=== PATIENT | female | born 1945 | race Caucasian/White ===

== ENCOUNTER 2016-11-01 21:44 | Observation (INO) | payer OTHER ==
[~2016-11-01] VITALS: Ht 165.1 cm; Wt 67.3 kg
[~2016-11-01 21:44] MED LIST: ADVIL,NUPRIN,M200 MG PO; ASPIR-LOW81 MG PO; ASPIR-TRIN325 M1 PO; ATIVAN0.5 MG PO; Advil,Nuprin,Motrin PO; Ativan PO; CALCIUM 500 +1 EACH PO; CARDIZEM CD,CA180 MG PO; CLARITIN-D 21 TABLET PO; ERYTHROMYC1 APPLICAT BOTH EYES; HYDROCHLOROTHIA25 MG PO; Hydrodiuril,Oretic,E PO; LUCENTIS0.5 MG/0.0 IO; Levothroid,Synthroid PO; NICOTINE PATCH1 EAC2 TD; PSEUDOEPHEDRINE30 MG PO; ST. JOSEPH ASPI81 MG PO; SYNTHROID100 MCG PO; Sudafed PO; TUMS500 MG PO; Tums,OsCal PO; Vicodin
[2016-11-01 22:20] LABS: HEMATOCRIT 36.2 % (36.0-46.0); MCV 88.3 FL (83-99); MEAN PLAT.VOLUME 9.4 uM^3 (9.5-12.4); PLATELET COUNT 464 K/uL (156-360); RBC DIS.WIDTH-CV 13.5 % (11.8-14.6); RBC DIS.WIDTH-SD 42.1 % (39-53); WHITE BLOOD COUNT 11.3 K/uL (4.1-10.2)
[2016-11-01 22:35] LABS: CHLORIDE 100 mEq/L (99-109); POTASSIUM 2.8 mEq/L (3.7-5.4); SODIUM 139 mEq/L (136-147)
[2016-11-01 22:36] LABS: GLUCOSE 89 mg/dL (70-99)
[2016-11-01 22:38] LABS: ANION GAP 12 MEQ/L (2-14)
[2016-11-01 22:40] LABS: GFR ESTIMATE (CALCULATED) > 59 mL/min/
[2016-11-01 22:41] LABS: UREA NITROGEN (BUN) 19 mg/dL (9-23)
[2016-11-01 22:44] LABS: TROP-I INTERPRETATION NEGATIVE; TROPONIN-I 0.04 ng/mL (0.0-0.30)
[2016-11-01 23:34] LABS: MAGNESIUM 2.1 mg/dL (1.3-2.7)
[2016-11-02] MEDS ORDERED: CARDIZEM CD,CA180 MG PO (00:06)
[2016-11-02] MEDS ORDERED: LORAZEPAM0.5 MG PO (00:07)
[2016-11-02] MEDS ORDERED: TIZANIDINE HCL4 MG PO (00:08)
[2016-11-02] MEDS ORDERED: PREDNISONE50 MG PO (00:08)
[2016-11-02] MEDS ORDERED: KLOR-CON M2020 MEQ PO (00:08)
[2016-11-02] MEDS ORDERED: ELIQUIS5 MG PO (00:08)
[2016-11-02] MEDS ORDERED: PRAVASTATIN SOD40 MG PO (00:09)
[2016-11-02 00:43] LABS: SERUM ETHYL ALCOHOL < 10 mg/dL
[2016-11-02 03:23] VITALS: BP 162/74
[2016-11-02 03:52] LABS: ADD MIUA? YES; BILIRUBIN NEGATIVE; BLOOD TRACE; COLOR YELLOW ((YELLOW)); GLUCOSE (STRIP) NEGATIVE; KETONES NEGATIVE; LEUKOCYTES SMALL; NITRITE NEGATIVE; PROTEIN (STRIP) NEGATIVE; UROBILINOGEN 0.2 MG/DL (0.2-1.0)
[2016-11-02 04:19] LABS: AMPHETAMINES QUANT VALUE 0 NG/ML; BARBITUATES QUANT VALUE 0 NG/ML; BENZODIAZEPINES QUANT VALUE 0 NG/ML; BENZODIAZEPINES, URINE SCREEN Negative (200 ng/mL); MARIJUANA QUANT VALUE 0 NG/ML; OPIATES QUANTITATIVE VALUE 0 NG/ML; PHENCYCLIDINE QUANT VALUE 0 NG/ML
[2016-11-02 04:43] VITALS: BP 140/80
[2016-11-02 04:51] LABS: BACTERIA RARE /HPF; CASTS NONE SEEN /LPF; CRYSTALS NONE SEEN; EPITHELIAL CELLS RARE /HPF; MUCUS NONE SEEN /LPF; RED BLOOD CELLS RARE /HPF (0-5); UCUL ADDED? NO; WHITE BLOOD CELLS 0-5 /HPF (0-5)
[2016-11-02 05:19] LABS: EOSINOPHIL (%) 0.6 % (0-5); EOSINOPHIL COUNT 0.1 K/uL (0-0.3); HEMATOCRIT 32.9 % (36.0-46.0); IMMATURE GRANULOCYTE (%) 0.6 % (0.0-0.7); IMMATURE GRANULOCYTE COUNT 0.1 K/uL; LYMPHOCYTE COUNT 3.1 K/uL (1.0-2.8); MCHC 33.7 G/DL (30.0-36.0); MCV 88.9 FL (83-99); MEAN PLAT.VOLUME 10.3 uM^3 (9.5-12.4); MONOCYTE (%) 9.9 % (3-12); MONOCYTE COUNT 0.8 K/uL (0-0.8); NEUTROPHIL (%) 50.8 % (45-76); NEUTROPHIL COUNT 4.1 K/uL (1.8-6.4); PLATELET COUNT 386 K/uL (156-360); RBC DIS.WIDTH-CV 13.8 % (11.8-14.6); RBC DIS.WIDTH-SD 45.4 % (39-53); WHITE BLOOD COUNT 8.1 K/uL (4.1-10.2)
[2016-11-02 05:41] LABS: TROP-I INTERPRETATION NEGATIVE; TROPONIN-I 0.03 ng/mL (0.0-0.30)
[2016-11-02 05:43] LABS: ANION GAP 9 MEQ/L (2-14); CHLORIDE 105 MEQ/L (99-109); GFR ESTIMATE (CALCULATED) > 59 mL/min/; GLUCOSE 73 mg/dL (70-99); SAMPLE HEMOLYSIS CHECK 0; SAMPLE ICTERIC CHECK 0; SAMPLE LIPEMIA CHECK 0; SODIUM 141 MEQ/L (136-147); UREA NITROGEN (BUN) 16 mg/dL (9-23)
[2016-11-02 07:13] VITALS: BP 175/77
[2016-11-02 12:26] VITALS: BP 145/69
[2016-11-02 12:32] LABS: TROP-I INTERPRETATION NEGATIVE; TROPONIN-I 0.03 ng/mL (0.0-0.30)
== END 2016-11-02 16:18 | disposition home or self-care (01) ==
LOC: EME 21:44 → EDOF 23:20 → 5WEST 23:20 → EDOF 23:20 → 5WEST 11-02 00:01
PROVIDERS: Physician Assistant Medical
DX: R55 Syncope and collapse (principal); I48.0 Paroxysmal atrial fibrillation; E87.6 Hypokalemia; E86.0 Dehydration; I25.10 Atherosclerotic heart disease of native coronary artery without angina pectoris; I25.82 Chronic total occlusion of coronary artery; I10 Essential (primary) hypertension; E03.9 Hypothyroidism, unspecified; F17.200 Nicotine dependence, unspecified, uncomplicated; F41.9 Anxiety disorder, unspecified; D72.829 Elevated white blood cell count, unspecified; R91.8 Other nonspecific abnormal finding of lung field; Z79.01 Long term (current) use of anticoagulants; Z79.82 Long term (current) use of aspirin; Z91.128 Patient's intentional underdosing of medication regimen for other reason; T45.7X6A Underdosing of anticoagulant antagonist, vitamin K and other coagulants, initial encounter; T46.6X6A Underdosing of antihyperlipidemic and antiarteriosclerotic drugs, initial encounter; Z82.49 Family history of ischemic heart disease and other diseases of the circulatory system; Z80.0 Family history of malignant neoplasm of digestive organs; Z82.5 Family history of asthma and other chronic lower respiratory diseases; Z88.8 Allergy status to other drugs, medicaments and biological substances
CPT/HCPCS: 71020; 80048; 81003; 83735; 84484; 85025; 85027; 93005; 99281; 99285; G0378; G0480; J3480